=== PATIENT | male | born 1970 | race African-American/Black ===

== ENCOUNTER 2017-05-26 14:54 | Inpatient (IN) | payer OTHER ==
[2017-05-26 15:11] VITALS: BMI 22.1
[2017-05-26] MEDS ORDERED: MAGNESIUM CITRATE 300 ML BOTTLE PO PRN (20:02)
[2017-05-26] MEDS ORDERED: MAG HYDROX/AL HYDROX/SIMETH 30 ML UNIT-DOSE CUP PO PRN (20:02)
[2017-05-26] MEDS ORDERED: LOPERAMIDE HCL 2 MG CAPSULE PO PRN (20:02)
[2017-05-26] MEDS ORDERED: hydrOXYzine PAMOATE 50 MG CAPSULE (FP) PO PRN (20:02)
[2017-05-26] MEDS ORDERED: MENTHOL/PHENOL 1 EACH UD MM PRN (20:02)
[2017-05-26] MEDS ORDERED: guaiFENesin/D-METHORPHAN HB 10 ML UNIT-DOSE CUPS PO PRN (20:02)
[2017-05-26] MEDS ORDERED: P-EPHED 60MG/TRIPROLIDI 2.5MG TABLET PO PRN (20:02)
[2017-05-26] MEDS ORDERED: MAGNESIUM HYDROX 2400MG/30ML ORAL SUSPENSION 30 ML CUP PO PRN (20:02)
[2017-05-26] MEDS ORDERED: diphenhydrAMINE HCL 50 MG CAPSULE PO PRN (20:02)
[2017-05-26] MEDS ORDERED: IBUPROFEN 400 MG TABLET (FP) PO PRN (20:02)
--- NOTE | 2017-05-26 20:06 | HP ---
Admission ROS [facility] Chief Complaint: Seeking rehab services. Allergies/Adverse Reactions: Allergies Allergy/AdvReac Type Severity Reaction Status Date / Time Penicillins Allergy Severe Hives Verified 05/26/17 18:43 History of Present Illness: 47 y.o. man with an extensive history of drug and alcohol dependence is here seeking rehab services. He completed detox at [facility] on 05/16/17. Exam Limitations: No Limitations - Ebola screening Have you traveled outside of the country in the last 21 days: No Have you had contact with anyone from an Ebola affected area: No Have you been sick,other than usual withdrawal symptoms: No - Review of Systems Constitutional: Loss of Appetite, Changes in sleep, Unintentional Wgt. Loss EENT: reports: Blurred Vision Respiratory: reports: No Symptoms reported Cardiac: reports: No Symptoms Reported GI: reports: No Symptoms Reported : reports: No Symptoms Reported Musculoskeletal: reports: Back Pain Integumentary: reports: Bruising (B/L knees) Neuro: reports: No Symptoms reported Endocrine: reports: No Symptoms Reported Hematology: reports: No Symptoms Reported Psychiatric: reports: Orientated x3 Other Systems: Reviewed and Negative Patient History - Patient Medical History Hx Anemia: No Hx Asthma: No Hx Chronic Obstructive Pulmonary Disease (COPD): No Hx Cancer: No Hx Cardiac Disorders: No Hx Congestive Heart Failure: No Hx Hypertension: No Hx Hypercholesterolemia: No Hx Pacemaker: No HX Cerebrovascular Accident: No Hx Seizures: No Hx Dementia: No Hx Diabetes: No Hx Gastrointestinal Disorders: No Hx Liver Disease: No Hx Genitourinary Disorders: No Hx Sexually Transmitted Disorders: No Hx Renal Disease (ESRD): No Hx Thyroid Disease: No Hx Human Immunodeficiency Virus (HIV): No Hx Hepatitis C: No Hx Depression: No Hx Suicide Attempt: No Hx Bipolar Disorder: No Hx Schizophrenia: No - Patient Surgical History Past Surgical History: Yes Hx Orthopedic Surgery: Yes (Left knee sx ) Anesthesia Reaction: No - PPD History Documented Results: Negative w/o proof PPD to be Administered?: Yes - Reproductive History Patient is a Female of Child Bearing Age (11 -55 yrs old): No - Smoking Cessation Smoking history: Current every day smoker Aproximately how many cigarettes per day: 6 Hx Chewing Tobacco Use: No Initiated information on smoking cessation: Yes 'Breaking Loose' booklet given: 05/26/17 - Substance & Tx. History Hx Alcohol Use: Yes Hx Substance Use: Yes Substance Use Type: Alcohol, Cocaine Hx Substance Use Treatment: Yes (Detox at [facility] discharged on 05/06/17; rehab many years ago. ) - Substances Abused Alcohol Route: Oral Frequency: Daily Amount used: 2 PTS LIQUOR/ BEER OCCASIONALLY- $30 Age of first use: 17 Date of Last Use: 05/10/17 Crack Route: Smoking Frequency: 3-6 times per week Amount used: $150 Age of first use: 32 Date of Last Use: 05/25/17 Family Disease History - Family Disease History Family History: Denies Admission [facility] - Vital Signs Vital Signs: Vital Signs - 24 hr 05/26/17 15:09 Temperature 96.4 F L Pulse Rate 67 Respiratory 18 Rate Blood Pressure 134/85 - Physical General Appearance: Yes: No Apparent Distress, Nourished, Appropriately Dressed HEENTM: Yes: Hearing grossly Normal, Normal ENT Inspection, Normocephalic, Normal Voice Respiratory: Yes: Chest Non-Tender, Lungs Clear, Normal Breath Sounds, No Respiratory Distress, No Accessory Muscle Use Neck: Yes: No masses,lesions,Nodules, Trachea in good position Breast: Yes: Breast Exam Deferred Cardiology: Yes: Regular Rhythm, Regular Rate Abdominal: Yes: Non Tender, Flat, Soft Genitourinary: Yes: Other (No complaints reported) Back: Yes: Normal Inspection Musculoskeletal: Yes: full range of Motion, Gait Steady Extremities: Yes: Normal Inspection, Normal Range of Motion, Non-Tender Neurological: Yes: demand planning manager II-XII NML intact, Fully Oriented, Motor Strength 5/5, Normal Mood/Affect, Normal Response Integumentary: Yes: Normal Color, Dry, Warm Lymphatic: Yes: Within Normal Limits - Diagnostic (1) Alcohol dependence with uncomplicated withdrawal Current Visit: Yes Status: Chronic (2) Cocaine dependence, uncomplicated Current Visit: Yes Status: Chronic (3) Nicotine dependence Current Visit: Yes Status: Chronic Cleared for Admission [facility] - [facility]ox [facility]hab [facility] Level of Care: Observation Bed Claeared for Rehab Admission: Yes [facility] Breath Alcohol Content Breath Alcohol Content: 0 Urine Drug Screen - Results Drug Screen Negative: No Urine Drug Screen Results: PAULINE-Cocaine, BZO-Benzodiazepines
[2017-05-26] MEDS: BACITRACIN 15 GM TUBE TOPICAL OINTMENT TP SCH (21:44)
[2017-05-26] MEDS: THIAMINE HCL 100 MG TABLET (FP) PO SCH (21:46)
[2017-05-26 23:07] LABS: URINE APPEARANCE CLEAR; URINE BILIRUBIN NEGATIVE (NEGATIVE); URINE BLOOD NEGATIVE (NEGATIVE); URINE COLOR YELLOW; URINE GLUCOSE (UA) NEGATIVE (NEGATIVE); URINE KETONE NEGATIVE (NEGATIVE); URINE LEUK ESTERASE NEGATIVE (NEGATIVE); URINE NITRITE NEGATIVE (NEGATIVE); URINE PROTEIN NEGATIVE (NEGATIVE)
[2017-05-26] MEDS ORDERED: cloNIDine HCL 0.1 MG TABLET PO ONE (23:36)
--- NOTE | 2017-05-27 09:23 | EKG ---
Test Reason : Blood Pressure : / mmHG Vent. Rate : 083 BPM Atrial Rate : 083 BPM P-R Int : 174 ms QRS Dur : 088 ms QT Int : 360 ms P-R-T Axes : 070 -27 042 degrees QTc Int : 423 ms NORMAL SINUS RHYTHM SEPTAL INFARCT , AGE UNDETERMINED ABNORMAL ECG NO PREVIOUS ECGS AVAILABLE Confirmed by CHICO DENG MD ([id number]) on 05/27/2017 9:23:05 AM Referred By: Aleksandra Delgado Confirmed By:CHICO DENG MD
[2017-05-27 10:19] LABS: MCH 29.6 pg (25.7-33.7); MCHC 33.2 g/dl (32.0-35.9); MEAN CELL VOLUME 89.4 fl (80-96); MEAN PLT VOLUME 9.4 fl (7.5-11.1); PLATELET COUNT 224 K/MM3 (134-434); RDW 13.6 % (11.9-15.9); WHITE BLOOD COUNT 4.6 K/mm3 (4.0-10.0)
[2017-05-27] MEDS: PRENATAL VITAMINS W/ FOLIC ACID TABLET (FP) PO SCH (10:28)
[2017-05-27 10:40] LABS: ALK PHOS 112 U/L (45-117); ANION GAP 10 (8-16); BILIRUBIN,TOTAL 0.5 mg/dL (0.2-1.0); CALCIUM 8.6 mg/dL (8.5-10.1); CO2 26 mmol/L (21-32); CREATININE 1.1 mg/dL (0.7-1.3); GLUCOSE,RANDOM 78 mg/dL (74-106); SGOT/AST 20 U/L (15-37); SGPT/ALT 17 U/L (12-78); TOT PROT 6.2 g/dl (6.4-8.2)
[2017-05-27] MEDS: BACITRACIN 0.9 GM PACKET TP SCH ×2 (12:12→23:13)
--- NOTE | 2017-05-27 13:20 | HP ---
Psychiatrist Admission - Data Date of interview: 05/20/17 Admission source: [facility] Identifying data: This is the first 5N inpatient rehabilitation admission for this 47 year old single Black male, who is domciled. Medical History: Left knee surgery, smoks cigarettes 5 a day. Psychiatric History: Patient denies Physical/Sexual Abuse/Trauma History: Patient denies Vital Signs: Vital Signs - 24 hr 05/26/17 05/27/17 05/27/17 15:09 00:42 03:30 Temperature 96.4 F L Pulse Rate 67 Respiratory 18 18 18 Rate Blood Pressure 134/85 05/27/17 07:12 Temperature 98.0 F Pulse Rate 75 Respiratory 18 Rate Blood Pressure 131/86 Allergies/Adverse Reactions: Allergies Allergy/AdvReac Type Severity Reaction Status Date / Time Penicillins Allergy Severe Hives Verified 05/26/17 18:43 Date of last physical exam: 05/26/17 Concur with the findings of this exam: Yes - Substance Abuse/Tx History Hx Alcohol Use: Yes (2 pints of liquor daily and beer "occasionall') Hx Substance Use: Yes Substance Use Type: Cocaine (crack started at age of 32, $150 3-6 times a day.) Hx Substance Use Treatment: Yes - Admission Criteria Previous failed treatment: Yes Poor recovery environment: Yes Comorbidities: No Lacks judgement: Yes Mental Status Exam - Mental Status Exam Alert and Oriented to: Time, Place, Person Cognitive Function: Good Patient Appearance: Well Groomed Affect: Appropriate, Mood Congruent, Normal Range Patient Behavior: Appropriate, Cooperative Speech Pattern: Clear, Appropriate Voice Loudness: Normal Thought Process: Intact, Goal Oriented Thought Disorder: Not Present Hallucinations: Denies Suicidal Ideation: Denies Homicidal Ideation: Denies Insight/Judgement: Fair Sleep: Fair Appetite: Fair Muscle strength/Tone: Normal Gait/Station: Normal Psychiatric Findings - Problem List ([place] 1, 2,3) (1) Cocaine dependence, uncomplicated Current Visit: Yes Status: Chronic (2) Nicotine dependence Current Visit: Yes Status: Chronic - Initial Treatment Plan Initial Treatment Plan: monitor progress as needed.
[2017-05-27] MEDS: BACITRACIN 15 GM TUBE TOPICAL OINTMENT TP SCH (13:44)
[2017-05-27] MEDS: THIAMINE HCL 100 MG TABLET (FP) PO SCH (23:14)
[2017-05-28] MEDS: PRENATAL VITAMINS W/ FOLIC ACID TABLET (FP) PO SCH (10:17)
[2017-05-28] MEDS: BACITRACIN 0.9 GM PACKET TP SCH ×2 (10:17→21:49)
[2017-05-28] MEDS: THIAMINE HCL 100 MG TABLET (FP) PO SCH (21:50)
[2017-05-29] MEDS: PRENATAL VITAMINS W/ FOLIC ACID TABLET (FP) PO SCH (10:17)
[2017-05-29] MEDS: BACITRACIN 0.9 GM PACKET TP SCH ×2 (10:17→21:50)
[2017-05-29] MEDS: THIAMINE HCL 100 MG TABLET (FP) PO SCH (21:50)
[2017-05-30] MEDS: PRENATAL VITAMINS W/ FOLIC ACID TABLET (FP) PO SCH (10:24)
[2017-05-30] MEDS: BACITRACIN 0.9 GM PACKET TP SCH ×2 (10:24→21:43)
[2017-05-30] MEDS: THIAMINE HCL 100 MG TABLET (FP) PO SCH (21:43)
[2017-05-31] MEDS: PRENATAL VITAMINS W/ FOLIC ACID TABLET (FP) PO SCH (11:03)
[2017-05-31] MEDS: BACITRACIN 0.9 GM PACKET TP SCH ×2 (11:04→21:58)
[2017-05-31] MEDS: ACETAMINOPHEN 325 MG TABLET (FP) PO PRN (11:11)
[2017-05-31] MEDS: THIAMINE HCL 100 MG TABLET (FP) PO SCH (21:58)
[2017-06-01] MEDS: PRENATAL VITAMINS W/ FOLIC ACID TABLET (FP) PO SCH (10:19)
[2017-06-01] MEDS: BACITRACIN 0.9 GM PACKET TP SCH ×2 (10:19→21:51)
[2017-06-01] MEDS: THIAMINE HCL 100 MG TABLET (FP) PO SCH (21:51)
[2017-06-02] MEDS: PRENATAL VITAMINS W/ FOLIC ACID TABLET (FP) PO SCH (10:22)
[2017-06-02] MEDS: BACITRACIN 0.9 GM PACKET TP SCH ×2 (10:22→21:47)
[2017-06-02] MEDS: ACETAMINOPHEN 325 MG TABLET (FP) PO PRN (16:22)
[2017-06-02] MEDS: THIAMINE HCL 100 MG TABLET (FP) PO SCH (21:47)
[2017-06-03] MEDS: PRENATAL VITAMINS W/ FOLIC ACID TABLET (FP) PO SCH (10:04)
[2017-06-03] MEDS: BACITRACIN 0.9 GM PACKET TP SCH ×2 (10:04→21:53)
[2017-06-03] MEDS: THIAMINE HCL 100 MG TABLET (FP) PO SCH (21:53)
[2017-06-04] MEDS: BACITRACIN 0.9 GM PACKET TP SCH ×2 (10:23→21:54)
[2017-06-04] MEDS: PRENATAL VITAMINS W/ FOLIC ACID TABLET (FP) PO SCH (10:23)
[2017-06-04] MEDS: THIAMINE HCL 100 MG TABLET (FP) PO SCH (21:54)
[2017-06-05] MEDS: BACITRACIN 0.9 GM PACKET TP SCH ×2 (10:36→21:44)
[2017-06-05] MEDS: PRENATAL VITAMINS W/ FOLIC ACID TABLET (FP) PO SCH (10:36)
[2017-06-05] MEDS: THIAMINE HCL 100 MG TABLET (FP) PO SCH (21:44)
[2017-06-06] MEDS: PRENATAL VITAMINS W/ FOLIC ACID TABLET (FP) PO SCH (10:32)
[2017-06-06] MEDS: BACITRACIN 0.9 GM PACKET TP SCH ×2 (10:32→21:53)
[2017-06-06] MEDS: THIAMINE HCL 100 MG TABLET (FP) PO SCH (21:53)
[2017-06-07] MEDS ORDERED: cloNIDine HCL 0.1 MG TABLET PO ONE (06:44)
[2017-06-07] MEDS: BACITRACIN 0.9 GM PACKET TP SCH ×2 (10:35→21:47)
[2017-06-07] MEDS: PRENATAL VITAMINS W/ FOLIC ACID TABLET (FP) PO SCH (10:35)
[2017-06-07] MEDS: THIAMINE HCL 100 MG TABLET (FP) PO SCH (21:47)
[2017-06-08] MEDS: BACITRACIN 0.9 GM PACKET TP SCH ×2 (10:58→21:50)
[2017-06-08] MEDS: PRENATAL VITAMINS W/ FOLIC ACID TABLET (FP) PO SCH (10:58)
[2017-06-08] MEDS: THIAMINE HCL 100 MG TABLET (FP) PO SCH (21:50)
[2017-06-09] MEDS: BACITRACIN 0.9 GM PACKET TP SCH ×2 (10:36→21:21)
[2017-06-09] MEDS: PRENATAL VITAMINS W/ FOLIC ACID TABLET (FP) PO SCH (10:36)
[2017-06-09] MEDS: THIAMINE HCL 100 MG TABLET (FP) PO SCH (21:22)
[2017-06-10] MEDS: PRENATAL VITAMINS W/ FOLIC ACID TABLET (FP) PO SCH (10:12)
[2017-06-10] MEDS: BACITRACIN 0.9 GM PACKET TP SCH ×2 (10:12→21:47)
[2017-06-10] MEDS: THIAMINE HCL 100 MG TABLET (FP) PO SCH (21:47)
[2017-06-11] MEDS: BACITRACIN 0.9 GM PACKET TP SCH ×2 (10:12→21:46)
[2017-06-11] MEDS: PRENATAL VITAMINS W/ FOLIC ACID TABLET (FP) PO SCH (10:12)
[2017-06-11] MEDS: THIAMINE HCL 100 MG TABLET (FP) PO SCH (21:46)
[2017-06-12] MEDS: PRENATAL VITAMINS W/ FOLIC ACID TABLET (FP) PO SCH (10:24)
[2017-06-12] MEDS: BACITRACIN 0.9 GM PACKET TP SCH ×2 (10:24→21:38)
[2017-06-12] MEDS: THIAMINE HCL 100 MG TABLET (FP) PO SCH (21:38)
[2017-06-13] MEDS: PRENATAL VITAMINS W/ FOLIC ACID TABLET (FP) PO SCH (10:45)
[2017-06-13] MEDS: BACITRACIN 0.9 GM PACKET TP SCH ×2 (10:45→21:59)
[2017-06-13] MEDS: THIAMINE HCL 100 MG TABLET (FP) PO SCH (21:59)
[2017-06-14] MEDS: BACITRACIN 0.9 GM PACKET TP SCH ×2 (10:32→22:03)
[2017-06-14] MEDS: PRENATAL VITAMINS W/ FOLIC ACID TABLET (FP) PO SCH (10:32)
[2017-06-14] MEDS: THIAMINE HCL 100 MG TABLET (FP) PO SCH (22:04)
[2017-06-15] MEDS: PRENATAL VITAMINS W/ FOLIC ACID TABLET (FP) PO SCH (10:28)
[2017-06-15] MEDS: BACITRACIN 0.9 GM PACKET TP SCH ×2 (10:28→22:43)
[2017-06-15] MEDS: THIAMINE HCL 100 MG TABLET (FP) PO SCH (22:43)
[2017-06-16] MEDS: PRENATAL VITAMINS W/ FOLIC ACID TABLET (FP) PO SCH (10:45)
[2017-06-16] MEDS: BACITRACIN 0.9 GM PACKET TP SCH ×2 (10:45→21:19)
[2017-06-16] MEDS: THIAMINE HCL 100 MG TABLET (FP) PO SCH (21:18)
[2017-06-17] MEDS: PRENATAL VITAMINS W/ FOLIC ACID TABLET (FP) PO SCH (10:22)
[2017-06-17] MEDS: BACITRACIN 0.9 GM PACKET TP SCH ×2 (10:22→21:49)
[2017-06-17] MEDS: THIAMINE HCL 100 MG TABLET (FP) PO SCH (21:49)
[2017-06-18] MEDS: PRENATAL VITAMINS W/ FOLIC ACID TABLET (FP) PO SCH (10:28)
[2017-06-18] MEDS: BACITRACIN 0.9 GM PACKET TP SCH ×2 (10:28→21:30)
[2017-06-18] MEDS: THIAMINE HCL 100 MG TABLET (FP) PO SCH (21:30)
[2017-06-19] MEDS: PRENATAL VITAMINS W/ FOLIC ACID TABLET (FP) PO SCH (10:33)
[2017-06-19] MEDS: BACITRACIN 0.9 GM PACKET TP SCH ×2 (10:33→21:19)
[2017-06-19] MEDS: THIAMINE HCL 100 MG TABLET (FP) PO SCH (21:19)
[2017-06-20] MEDS: BACITRACIN 0.9 GM PACKET TP SCH ×2 (10:37→21:24)
[2017-06-20] MEDS: PRENATAL VITAMINS W/ FOLIC ACID TABLET (FP) PO SCH (10:37)
[2017-06-20] MEDS: THIAMINE HCL 100 MG TABLET (FP) PO SCH (21:24)
[2017-06-21] MEDS: PRENATAL VITAMINS W/ FOLIC ACID TABLET (FP) PO SCH (10:45)
[2017-06-21] MEDS: BACITRACIN 0.9 GM PACKET TP SCH ×2 (10:45→21:46)
[2017-06-21] MEDS: THIAMINE HCL 100 MG TABLET (FP) PO SCH (21:46)
[2017-06-22] MEDS: BACITRACIN 0.9 GM PACKET TP SCH ×2 (10:32→22:16)
[2017-06-22] MEDS: PRENATAL VITAMINS W/ FOLIC ACID TABLET (FP) PO SCH (10:32)
--- NOTE | 2017-06-22 10:49 | PN ---
Psychiatric Progress Note Vital Signs: Vital Signs Period Temp Pulse Resp BP Sys/Orsales Pulse Ox Last 24 Hr 18-18 Date of Session: 06/22/17 Chief Complaint:: discharge visit HPI: Patient is addressing cocaine, nicotine dependence. ROS: WNL Current Medications: Active Medications Generic Name Dose Route Start Last Admin Trade Name Freq PRN Reason Stop Dose Admin Acetaminophen 650 mg 05/26/17 20:02 06/02/17 16:22 Tylenol - PO 650 mg Q4H PRN Administration PAIN Al Hydroxide/Mg Hydroxide 30 ml 05/26/17 20:02 Mylanta Oral Suspension - PO Q6H PRN DYSPEPSIA Bacitracin 0.9 gm 05/27/17 10:55 06/22/17 10:32 Bacitracin - TP Not Given BID TAMMY Diphenhydramine HCl 50 mg 05/26/17 20:02 Benadryl - PO HSMR1 PRN INSOMNIA Eucalyptus/Menthol/Phenol/Sorbitol 1 each 05/26/17 20:02 Cepastat Lozenge - MM Q4H PRN SORE THROAT Guaifenesin 10 ml 05/26/17 20:02 Robitussin Dm - PO Q6H PRN COUGH Hydroxyzine Pamoate 50 mg 05/26/17 20:02 Vistaril - PO Q4H PRN AGITATION Ibuprofen 400 mg 05/26/17 20:02 06/03/17 19:45 Motrin - PO 400 mg Q6H PRN Administration SEVERE PAIN Loperamide HCl 4 mg 05/26/17 20:02 Imodium - PO Q6H PRN DIARRHEA Magnesium Citrate 300 ml 05/26/17 20:02 Citroma - PO Q48H PRN CONSTIPATION Magnesium Hydroxide 30 ml 05/26/17 20:02 Milk Of Magnesia - PO DAILY PRN CONSTIPATION Multivit/Folic Acid/Iron 1 tab 05/27/17 10:00 06/22/17 10:32 Vitamins (Sjr) - PO 1 tab DAILY TAMMY Administration Pseudoephedrine/Triprolidine 1 combo 05/26/17 20:02 Actifed - PO TID PRN NASAL CONGESTION Thiamine HCl 100 mg 05/26/17 22:00 06/21/17 21:46 Vitamin B1 - PO 100 mg HS TAMMY Administration Current Side Effect: No Lab tests ordered: No Lab tests reviewed: Yes Provider note:: Patient will completed his treatment an meet his goals on . He will continue to address his issues on outpatient basis at [facility]. Patient identifies areas of difficulties ,behaviors which contribute to relapse and was encouraged to utilize support available,coping skills to maintain recovery.Supportive therapy provided. Patient is stable for discharge tomorrow 06/23/17. Total face to face time:: 25 Mental Status Exam - Mental Status Exam Alert and Oriented to: Time, Place, Person Cognitive Function: Good Patient Appearance: Well Groomed Mood: Hopeful Affect: Mood Congruent Patient Behavior: Appropriate, Cooperative Speech Pattern: Clear, Appropriate Voice Loudness: Normal Thought Process: Intact, Goal Oriented Thought Disorder: Not Present Hallucinations: Denies Suicidal Ideation: Denies Homicidal Ideation: Denies Insight/Judgement: Fair Sleep: Fair Appetite: Good Muscle strength/Tone: Normal Gait/Station: Normal
[2017-06-22] MEDS: THIAMINE HCL 100 MG TABLET (FP) PO SCH (22:16)
[2017-06-23 07:05] VITALS: BP 137/88; PULSE 79; TEMP 98.5
[2017-06-23] MEDS: BACITRACIN 0.9 GM PACKET TP SCH (09:44)
[2017-06-23] MEDS: PRENATAL VITAMINS W/ FOLIC ACID TABLET (FP) PO SCH (09:44)
== END 2017-06-23 09:25 | disposition home or self-care (01) | DRG 772 ==
LOC: YASAS 14:54 → Y5N 17:44
PROVIDERS: ADMIT Psychiatry & Neurology Psychiatry; ATTEND Psychiatry & Neurology Psychiatry
PROC: HZ42ZZZ Group Counseling for Substance Abuse Treatment, Cognitive-Behavioral (ICD-10-PCS; principal; 2017-06-23)
DX: F10.230 Alcohol dependence with withdrawal, uncomplicated (principal); F14.20 Cocaine dependence, uncomplicated; F17.210 Nicotine dependence, cigarettes, uncomplicated
CPT/HCPCS: 36415; 80053; 81003; 85027; 86593; 93005; 93010